=== PATIENT | female | born 2005 | race Caucasian/White ===

== ENCOUNTER → 2025-08-13 | Outpatient (CLI) | payer BC ==
[~2025-08-13] MED LIST: ACET80L; SIME40L; SULTRIEL PO
[2025-08-13 18:37] LABS: Bilirubin, Urine Neg (Neg); Glucose Qualitative, Urine Neg (Neg); Ketones, Urine Neg (Neg); Leukocyte Esterase, Urine Neg (Neg); Protein, Urine Neg (Neg); Specific Gravity, Urine 1.005 (1.003-1.022); Urobilinogen, Urine NORM (Normal)
[2025-08-13 18:43] LABS: Color, Urine Pale Yellow (P-Yellow)
== END | disposition home or self-care (01) ==
LOC: LAB 17:27 → LAB SHORT 17:27
PROVIDERS: Family Medicine
DX: N39.0 Urinary tract infection, site not specified (principal)
CPT/HCPCS: 81003